=== PATIENT | female | born 1945 | race Caucasian/White ===

== ENCOUNTER 2020-07-18 14:29 | Emergency (ER) | payer MEDICARE ==
[~2020-07-18] VITALS: Ht 167.6 cm; Wt 62.3 kg
--- NOTE | 2020-07-18 15:03 | NUR ---
PT IS A 75F COMPLAINING OF WRIST, ARM, SHOULDER, AND NOSE PAIN AFTER A FALL AT 1330 THIS AFTERNOON. SHE TRIPPED AND FELL ON CONCRETE. POSITIVE DEFORMITY RIGHT WRIST. PROVIDER AT BEDSIDE FOR EVAL AND POC. PATIENT IN GOWN AND PILLOW PROVIDED FOR SUPPORT OF ARM. CALL LIGHT WITHIN REACH.
[2020-07-18] MEDS ORDERED: HYDROcodone/APAP 5/325 TABLET ONE (15:08)
[2020-07-18] MEDS ORDERED: HYDROcodone/APAP 5/325 TABLET PO ONE (15:30)
[2020-07-18] MEDS ORDERED: HYDROcodone/APAP 5/325 TABLET PO PRN (15:30)
--- NOTE | 2020-07-18 16:34 | NUR ---
PT RESTING COMFORTABLY WITH FRIEND AT BEDSIDE. VITALS UPDATED, CALL LIGHT WITHIN REACH. AWAITING DISPOSITION.
[2020-07-18 18:35] VITALS: BP 136/81
--- NOTE | 2020-07-18 18:38 | NUR ---
Patient/Caregiver given discharge instructions and they have confirmed that they understand the instructions. Patient d/c on wheelchair with friend
== END 2020-07-18 18:39 | disposition home or self-care (01) ==
LOC: ED 16:23
DX: S52.571A Other intraarticular fracture of lower end of right radius, initial encounter for closed fracture (principal); R07.81 Pleurodynia; R04.0 Epistaxis; I10 Essential (primary) hypertension; Z86.39 Personal history of other endocrine, nutritional and metabolic disease; W19.XXXA Unspecified fall, initial encounter; Y93.89 Activity, other specified; Y92.488 Other paved roadways as the place of occurrence of the external cause; Y99.8 Other external cause status
CPT/HCPCS: 29125; 71046; 99284

== ENCOUNTER 2020-07-22 09:32 | Day surgery (SDC) | payer MEDICARE ==
[~2020-07-22] VITALS: Ht 160 cm; Wt 61.3 kg
[2020-07-22] MEDS ORDERED: CHLORHEXIDINE 15 ML UDC MM ONE (10:30)
[2020-07-22] MEDS ORDERED: MAGNESIUM PO (10:35)
[2020-07-22] MEDS ORDERED: LOSARTAN PO (10:35)
[2020-07-22] MEDS ORDERED: VIT B12 PO (10:35)
[2020-07-22] MEDS ORDERED: MULTI VITAMIN PO (10:35)
[2020-07-22] MEDS ORDERED: LEVO112T4 PO (10:35)
[2020-07-22] MEDS ORDERED: HYDR50TA6 PO (10:35)
[2020-07-22] MEDS ORDERED: HYDROCODONE PO (10:35)
[2020-07-22] MEDS ORDERED: HYDR-1067 PO (10:35)
[2020-07-22 10:42] VITALS: BP 144/81
[2020-07-22] MEDS ORDERED: FENTANYL PF 100 MCG/2ML ONE ×2 (10:49→13:14)
[2020-07-22] MEDS ORDERED: LACTATED RINGERS 1,000 ML IV SCH (11:00)
[2020-07-22 11:22] LABS: ALANINE AMINOTRANSFERASE 24 U/L (12-78); ALBUMIN 3.7 g/dL (3.4-5.0); ANION GAP 10 mmol/L (5-15); CALCIUM 8.9 mg/dL (8.5-10.1); CHLORIDE 103 mmol/L (98-107)
[2020-07-22 11:24] LABS: ALKALINE PHOSPHATASE 72 U/L (45-117); BILIRUBIN,TOTAL 0.7 mg/dL (0.2-1.0); TOTAL PROTEIN 7.5 g/dL (6.4-8.2)
[2020-07-22] MEDS ORDERED: BUPIVACAINE/PF 0.5% ONE (11:35)
[2020-07-22] MEDS ORDERED: SUGAMMADEX 200 MG/2 ML IVPush ONE (12:34)
[2020-07-22] MEDS ORDERED: OXYcodone 5 MG/5 ML ORAL.SOL UDC ONE (13:14)
[2020-07-22] MEDS ORDERED: ACETAMINOPHEN 650 MG/20.3 ML UDC ONE (13:14)
[2020-07-22] MEDS: FENTANYL PF 100 MCG/2ML IV PRN ×2 (13:20→13:30)
[2020-07-22] MEDS ORDERED: KETOROLAC 30 MG/1 ML ONE (13:24)
[2020-07-22] MEDS ORDERED: ROCURONIUM 10MG/ML,5ML ONE (13:27)
[2020-07-22] MEDS ORDERED: ONDANSETRON 2MG/ML, 2ML ONE (13:27)
[2020-07-22] MEDS ORDERED: GLYCOPYRROLATE 0.2MG/1ML, 5ML ONE (13:27)
[2020-07-22] MEDS ORDERED: PROPOFOL 10 MG/ML, 20ML ONE (13:27)
[2020-07-22] MEDS ORDERED: DEXAMETHASONE 4 MG/ML, 1ML ONE (13:27)
[2020-07-22] MEDS ORDERED: CEFAZOLIN 1,000 MG ONE (13:27)
[2020-07-22] MEDS ORDERED: SUCCINYLCHOLINE 20 MG/ML, 10ML ONE (13:27)
[2020-07-22] MEDS ORDERED: NEOSTIGMINE 1 MG/ML, 10ML ONE (13:27)
[2020-07-22] MEDS ORDERED: ACETAMINOPHEN 325 MG TABLET PO PRN (13:30)
[2020-07-22] MEDS ORDERED: LABETALOL 5MG/ML, 20ML IV PRN (13:30)
[2020-07-22] MEDS ORDERED: ALBUTEROL SULFATE 2.5 MG/3 ML NPPB PRN (13:30)
[2020-07-22] MEDS ORDERED: HYDROmorphone 2 MG/ML, 1ML IVPush PRN (13:30)
[2020-07-22] MEDS ORDERED: MEPERIDINE/PF 25MG/0.5ML IVPush PRN (13:30)
[2020-07-22] MEDS ORDERED: DIAZEPAM 5 MG/ML, 2ML IVPush PRN (13:30)
[2020-07-22] MEDS ORDERED: hydrALAzine 20 MG/ML, 1ML IV PRN (13:30)
[2020-07-22] MEDS ORDERED: KETOROLAC 30 MG/1 ML IV PRN (13:30)
[2020-07-22] MEDS ORDERED: OXYcodone 5 MG/5 ML ORAL.SOL UDC PO PRN (13:30)
[2020-07-22] MEDS ORDERED: PROMETHAZINE 25 MG/ML, 1ML IV PRN (13:30)
== END 2020-07-22 15:50 | disposition home or self-care (01) ==
LOC: OUT 09:32
PROVIDERS: ATTEND Orthopaedic Surgery
DX: S52.571A Other intraarticular fracture of lower end of right radius, initial encounter for closed fracture (principal); M19.90 Unspecified osteoarthritis, unspecified site; I10 Essential (primary) hypertension; J44.9 Chronic obstructive pulmonary disease, unspecified; M81.0 Age-related osteoporosis without current pathological fracture; W19.XXXA Unspecified fall, initial encounter; Y93.89 Activity, other specified; Y92.89 Other specified places as the place of occurrence of the external cause; Y99.8 Other external cause status; Z20.822 Contact with and (suspected) exposure to COVID-19; Z72.89 Other problems related to lifestyle; Z87.891 Personal history of nicotine dependence; Z79.899 Other long term (current) drug therapy; Z98.890 Other specified postprocedural states
CPT/HCPCS: 25609; 36415; 73110; 80053; 93005; C1713; J0330; J0690; J1100; J1885; J2405; J2704; J2710; J3010; U0003; 76000